=== PATIENT | female | born 1955 | race Two or more races ===

== ENCOUNTER 2024-12-21 18:33 | Emergency (ER) | payer MEDICARE, BC ==
[~2024-12-21] VITALS: Ht 162.6 cm; Wt 68.5 kg
[2024-12-21] MEDS ORDERED: ACETAMINOPHEN ES 500 MG TABLET ONE (19:41)
[2024-12-21] MEDS: ACETAMINOPHEN ES 500 MG TABLET PO ONE (19:45)
[2024-12-21] MEDS ORDERED: AMOX-430 PO (20:27)
[2024-12-21] MEDS ORDERED: OXYM15MI4 NS (20:27)
[2024-12-21 20:46] VITALS: BP 132/82; TEMP 98.1; O2SAT 99
== END 2024-12-21 20:51 | disposition home or self-care (01) ==
LOC: ER 18:41
DX: S02.2XXA Fracture of nasal bones, initial encounter for closed fracture (principal); S01.21XA Laceration without foreign body of nose, initial encounter; S80.02XA Contusion of left knee, initial encounter; W01.0XXA Fall on same level from slipping, tripping and stumbling without subsequent striking against object, initial encounter; Y93.89 Activity, other specified; Y92.89 Other specified places as the place of occurrence of the external cause; Y99.8 Other external cause status
CPT/HCPCS: 12011; 70450; 70486; 99284; A6403